=== PATIENT | female | born 1985 | race Caucasian/White ===

== ENCOUNTER 2023-10-05 09:27 | Outpatient (CLI) | payer OTHER, SELFPAY ==
[2023-10-05 10:25] LABS: Free T4 Free Thyroxine 0.59 ng/mL (0.78-2.19)
== END 2023-10-05 09:28 | disposition home or self-care (01) ==
PROVIDERS: PCP Family Medicine; Visit Provider Physician Assistant Medical
DX: E03.9 Hypothyroidism, unspecified (principal)
CPT/HCPCS: 36415; 84439; 84443